=== PATIENT | male | born 1975 | race Caucasian/White ===

== ENCOUNTER 2018-08-24 09:22 | Emergency (ER) | payer MEDICAID, OTHER ==
[2018-08-24 10:42] LABS: ADD MAN DIFF? NO
[2018-08-24] MEDS: SOD CHLORIDE 0.9% 1,000 ML IV (10:44)
[2018-08-24] MEDS: CYCLOBENZAPRINE 10 MG TAB PO (10:45)
[2018-08-24] MEDS: ONDANSETRON 4 MG INJ IV ×2 (10:45→12:18)
[2018-08-24] MEDS: morphine 4 MG/ML VIAL IV (10:45)
[2018-08-24] MEDS: KETOROLAC 30 MG INJ IV (10:45)
[2018-08-24 10:47] LABS: BASOPHILS % 0.3 % (0.0-2.0); EOSINOPHILS % 0.4 % (0.0-7.0); HEMATOCRIT 49.4 % (42.0-52.0); HEMOGLOBIN 16.5 g/dl (14.0-18.0); LYMPHOCYTES # 1.8 10^3/ul (0.8-2.9); LYMPHOCYTES % 24.7 % (15.0-51.0); MEAN CORPUSCULAR HEMOGLOBIN 30.2 pg (29.0-33.0); MEAN CORPUSCULAR HGB CONC 33.4 g/dl (32.0-37.0); MEAN CORPUSCULAR VOLUME 90.3 fl (82.0-101.0); MEAN PLATELET VOLUME 9.9 fl (7.4-10.4); MONOCYTE # 0.4 10^3/ul (0.3-0.9); MONOCYTES % 5.5 % (0.0-11.0); NEUTROPHILS % 68.8 % (39.0-77.0); PLATELET COUNT 279 10^3/UL (140-415); RED BLOOD COUNT 5.47 10^6/ul (4.70-6.10); RED CELL DISTRIBUTION WIDTH 12.6 % (11.5-14.5)
[2018-08-24 10:47] LABS: WHITE BLOOD COUNT 7.2 10^3/ul (4.8-10.8)
[2018-08-24 11:17] LABS: ALANINE AMINOTRANSFERASE 73 IU/L (13-69); ALBUMIN 4.6 g/dl (3.3-4.9); ALBUMIN/GLOBULIN RATIO 1.35; ALKALINE PHOSPHATASE 87 IU/L (42-121); ANION GAP 9 (5-13); ASPARTATE AMINO TRANSFERASE 47 IU/L (15-46); BILIRUBIN,INDIRECT 0.5 mg/dl (0-1.1); BILIRUBIN,TOTAL 0.5 mg/dl (0.2-1.3); BLOOD UREA NITROGEN 18 mg/dl (7-20); CALCIUM 9.6 mg/dl (8.4-10.2); CARBON DIOXIDE 29 mmol/L (21-31); CHLORIDE 105 mmol/L (97-110); Estimated GFR > 60 mL/min (>60); GLUCOSE 103 mg/dl (70-220); POTASSIUM 4.5 mmol/L (3.5-5.1); SODIUM 143 mmol/L (135-144)
[2018-08-24] MEDS: METHYLPREDNISOLONE 125 MG INJ IV (12:18)
[2018-08-24] MEDS: HYDROmorphONE 2 MG/ML SYG IV (12:18)
== END 2018-08-24 13:20 | disposition home or self-care (01) ==
LOC: FTE 09:22
DX: M54.41 Lumbago with sciatica, right side (principal)
CPT/HCPCS: 74176; 80053; 85025; 96374; 96375; 96376; 99285-25